=== PATIENT | male | born 1995 ===

== ENCOUNTER 2021-12-06 10:25 | Emergency (ER) | payer SELFPAY ==
[2021-12-06 12:40] LABS: HEMOGLOBIN A1C 5.7 %
[2021-12-06 12:48] LABS: BLOOD UREA NITROGEN,BUN 8 mg/dL (7.0-18.0); CARBON DIOXIDE,CO2 28.2 mmol/L (21.0-32.0); CHLORIDE,CL 103 mmol/L (98-107); GLUCOSE RANDOM 116 mg/dL (74-106); POTASSIUM,K 4.2 mmol/L (3.5-5.1); SODIUM,NA 138 mmol/L (136-148)
== END 2021-12-06 14:44 | disposition home or self-care (01) ==
LOC: MW.ED 10:25
DX: F41.9 Anxiety disorder, unspecified (principal)
CPT/HCPCS: 36415; 71046; 71046-26; 80053; 81003; 83036; 83735; 84484; 85025; 85610; 93005; 99284-25